=== PATIENT | female | born 1990 | race Caucasian/White ===

== ENCOUNTER 2016-09-23 19:09 | Emergency (ER) | payer MEDICAID ==
[2016-09-23 20:12] LABS: APPEARANCE CLEAR (CLEAR); BILIRUBIN NEGATIVE (NEGATIVE); COLOR YELLOW (YELLOW); GLUCOSE NEGATIVE (NEGATIVE); KETONE NEGATIVE (NEGATIVE); LEUKOCYTE ESTERASE 2+ (NEGATIVE); NITRITE NEGATIVE (NEGATIVE); PROTEIN NEGATIVE (NEGATIVE); SPECIFIC GRAVITY 1.025 (1.005-1.020); UROBILINOGEN NORMAL (NORMAL)
[2016-09-23 20:14] LABS: BACTERIA MODERATE /hpf (NONE SEEN); MUCUS >1+ /lpf (NONE SEEN); RED CELLS - URINE 0-5 /hpf (0-5); WHITE CELLS - URINE 25-50 /hpf (0-5)
[2016-09-23 20:19] LABS: HCG URINE NEGATIVE (NEGATIVE)
[2016-09-23 21:25] LABS: BASOPHILS 0.2 % (0.0-2.0); EOSINOPHILS 0.5 % (0-7); HEMATOCRIT 41.7 % (36.0-48.0); HEMOGLOBIN 14.2 g/dL (12-16); IMMATURE GRANULOCYTES 0.2 % (0-5); LYMPHOCYTES 25.5 % (15-50); MCH 30.6 pg (26.0-34.0); MCHC 34.1 g/dL (31.0-37.0); MCV 89.9 fL (80.0-100.0); MEAN PLATELET VOLUME 10.2 fL (7.4-10.4); NEUTROPHILS 65.6 % (40-80); PLATELET COUNT 251 10x3/uL (130-400); RBC 4.64 10x6/uL (4.00-5.40); RDW 12.6 % (11.5-14.5); WBC 10.6 10x3/uL (4.8-10.8)
[2016-09-23 21:44] LABS: ALT (SGPT) 45 U/L (10-68); AMYLASE - SERUM 51 U/L (25-115); CALC OSMOLALITY 275 mosm/kg (275-300); CALCIUM 9.1 mg/dL (8.5-10.1); CARBON DIOXIDE 23.6 mmol/L (21.0-32.0); CHLORIDE - SERUM 101 mmol/L (98-107); CREATININE - SERUM 0.9 mg/dL (0.6-1.3); GLUCOSE 96 mg/dL (74-106); LIPASE 98 U/L (73-393); POTASSIUM - SERUM 3.5 mmol/L (3.5-5.1); SODIUM 138 mmol/L (136-145); UREA NITROGEN 12 mg/dL (7-18); eGFR NON AFRICAN AMERICAN 81 mL/min (90-120)
[2016-09-23 21:45] LABS: ALBUMIN 4.4 g/dL (3.4-5.0); ALKALINE PHOSPHATASE 97 U/L (46-116); PROTEIN - SERUM 7.6 g/dL (6.4-8.2)
== END 2016-09-23 23:20 | disposition home or self-care (01) ==
LOC: D.ER 19:09
PROVIDERS: Family Medicine
DX: N39.0 Urinary tract infection, site not specified (principal); N76.0 Acute vaginitis; F17.200 Nicotine dependence, unspecified, uncomplicated

== ENCOUNTER 2018-05-01 20:15 | Emergency (ER) | payer MEDICAID ==
[~2018-05-01] VITALS: Ht 175.3 cm; Wt 104.5 kg
[2018-05-01 20:23] VITALS: Ht 175.3 cm; Wt 104.5 kg
[2018-05-01] MEDS ORDERED: MACROBID100 MG PO ×2 (20:25→22:59)
[2018-05-01 22:23] LABS: BASOPHILS 0.3 % (0-2); EOSINOPHILS 0.7 % (0-7); HEMATOCRIT 38.6 % (36.0-48.0); HEMOGLOBIN 13.6 g/dL (12-16); IMMATURE GRANULOCYTES 0.3 % (0-5); LYMPHOCYTES 11.8 % (15-50); MCH 31.8 pg (26.0-34.0); MCHC 35.2 g/dL (31.0-37.0); MCV 90.2 fL (80.0-100.0); MEAN PLATELET VOLUME 9.8 fL (7.4-10.4); MONOCYTES 5.3 % (2-11); NEUTROPHILS 81.6 % (40-80); PLATELET COUNT 294 10x3/uL (130-400); RBC 4.28 10x6/uL (4.00-5.40)
[2018-05-01 22:26] LABS: APPEARANCE HAZY (CLEAR); BACTERIA MODERATE /hpf (NONE SEEN); BILIRUBIN NEGATIVE (NEGATIVE); COLOR YELLOW (YELLOW); EPITHELIAL CELLS 0-5 /hpf (0-5); GLUCOSE NEGATIVE (NEGATIVE); KETONE NEGATIVE (NEGATIVE); NITRITE NEGATIVE (NEGATIVE); PROTEIN NEGATIVE (NEGATIVE); SPECIFIC GRAVITY 1.025 (1.005-1.020); UROBILINOGEN NORMAL (NORMAL)
[2018-05-01 22:39] LABS: HCG SERUM NEGATIVE (NEGATIVE)
[2018-05-01 22:44] LABS: ALBUMIN 4.1 g/dL (3.4-5.0); ALKALINE PHOSPHATASE 101 U/L (46-116); ALT (SGPT) 38 U/L (10-68); AMYLASE - SERUM 47 U/L (25-115); BILIRUBIN - TOTAL 0.42 mg/dL (0.2-1.3); CALC OSMOLALITY 277 mosm/kg (275-300); CALCIUM 9.1 mg/dL (8.5-10.1); CARBON DIOXIDE 23.5 mmol/L (21.0-32.0); CHLORIDE - SERUM 104 mmol/L (98-107); CREATININE - SERUM 0.9 mg/dL (0.6-1.3); GLUCOSE 103 mg/dL (74-106); LIPASE 122 U/L (73-393); POTASSIUM - SERUM 3.4 mmol/L (3.5-5.1); PROTEIN - SERUM 8.2 g/dL (6.4-8.2); SODIUM 138 mmol/L (136-145); UREA NITROGEN 19 mg/dL (7-18); eGFR NON AFRICAN AMERICAN 80 mL/min (90-120)
[2018-05-01] MEDS ORDERED: ATIVAN1 MG PO (22:59)
[2018-05-01 23:50] VITALS: BP 131/77
[2018-05-05 22:07] LABS: CHLAMYDIA TRACHOMATIS, NAA Negative (Negative)
== END 2018-05-01 23:51 | disposition home or self-care (01) ==
LOC: D.ER 20:15
PROVIDERS: Emergency Medicine
DX: F45.8 Other somatoform disorders (principal); F41.9 Anxiety disorder, unspecified; N39.0 Urinary tract infection, site not specified; R11.2 Nausea with vomiting, unspecified; F17.200 Nicotine dependence, unspecified, uncomplicated

== ENCOUNTER 2018-05-05 20:06 | Emergency (ER) | payer MEDICAID ==
[~2018-05-05] VITALS: Ht 175.3 cm; Wt 99.3 kg
[~2018-05-05 20:06] MED LIST: ATIVAN1 MG PO; MACROBID100 MG PO
[2018-05-05 20:16] VITALS: BP 132/78; Ht 175.3 cm; Wt 99.3 kg
== END 2018-05-05 22:20 | disposition left against medical advice (07) ==
LOC: D.ER 20:06
DX: J02.9 Acute pharyngitis, unspecified (principal)